=== PATIENT | female | born 1930 | race Caucasian/White ===

== ENCOUNTER 2017-12-22 14:07 | Outpatient (CLI) | payer MEDICARE, OTHER | END 2017-12-22 14:08 | disposition home or self-care (01) | LOC: BICMAMMO 14:07 | PROVIDERS: ATTEND Obstetrics & Gynecology | DX: Z12.31 Encounter for screening mammogram for malignant neoplasm of breast (principal); Z80.3 Family history of malignant neoplasm of breast | CPT/HCPCS: 77063; 77067 ==

== ENCOUNTER 2018-10-06 10:22 | Outpatient (CLI) | payer MEDICARE, OTHER ==
--- NOTE | 2018-10-06 12:53 | CT ---
CT HEAD WITHOUT CONTRAST: HISTORY: Headache. TECHNIQUE: Multiple axial tomograms obtained through the head without IV enhancement. FINDINGS: Mild cortical volume loss. The ventricles have normal size and position. No hemorrhage, mass, infar ct, or other acute process identified. IMPRESSION: No acute finding. POS: [facility]
== END 2018-10-06 10:23 | disposition home or self-care (01) ==
LOC: BICCT 10:22
PROVIDERS: ATTEND Internal Medicine
DX: R51 Headache (principal)
CPT/HCPCS: 70450

== ENCOUNTER 2018-12-29 09:35 | Outpatient (CLI) | payer MEDICARE, OTHER ==
--- NOTE | 2018-12-30 08:48 | MMO ---
Bilateral MAMMO Bilat Screen [facility]. CLINICAL HISTORY: Patient is 88 years old and is seen for screening. The patient has the following family history of breast cancer: 2 sisters and maternal grandmother. The patient has no personal history of cancer. VIEWS: The views performed were: bilateral craniocaudal with tomosynthesis and bilateral mediolateral oblique with tomosynthesis. FILMS COMPARED: The present examination has been compared to prior imaging studies performed at [facility] on 12/22/2017, and at [facility] on 11/06/2014, 11/19/2015 and 12/18/2016. This study has been interpreted with the assistance of computer-aided detection. MAMMOGRAM FINDINGS: There are scattered fibroglandular densities. Benign calcifications are noted bilaterally. There are no suspicious masses, suspicious calcifications, or new areas of architectural distortion. IMPRESSION: THERE IS NO MAMMOGRAPHIC EVIDENCE OF MALIGNANCY. A ROUTINE FOLLOW-UP MAMMOGRAM IN 1 YEAR IS RECOMMENDED. THE RESULTS OF THIS EXAM WERE SENT TO THE PATIENT. ACR BI-RADS Category 2 - Benign finding MAMMOGRAPHY NOTE: 1. A negative mammogram report should not delay a biopsy if a dominant of clinically suspicious mass is present. 2. Approximately 10% to 15% of breast cancers are not detected by mammography. 3. Adenosis and dense breasts may obscure an underlying neoplasm. Reported by: Jessy ACOSTA Electonically Signed: [id number]
== END 2018-12-29 09:36 | disposition home or self-care (01) ==
LOC: BICMAMMO 09:35
PROVIDERS: ATTEND Obstetrics & Gynecology
DX: Z12.31 Encounter for screening mammogram for malignant neoplasm of breast (principal); Z80.3 Family history of malignant neoplasm of breast
CPT/HCPCS: 77063; 77067

== ENCOUNTER 2020-01-01 12:46 | Outpatient (CLI) | payer MEDICARE, OTHER ==
--- NOTE | 2020-01-01 14:13 | MMO ---
Bilateral MAMMO Bilat Screen [facility]. CLINICAL HISTORY: Patient is 89 years old and is seen for screening. The patient has the following family history of breast cancer: 2 sisters and maternal grandmother. The patient has no personal history of cancer. VIEWS: The views performed were: bilateral craniocaudal with tomosynthesis and bilateral mediolateral oblique with tomosynthesis. FILMS COMPARED: The present examination has been compared to prior imaging studies performed at [facility] on 12/22/2017 and 12/29/2018, and at [facility] on 11/19/2015 and 12/18/2016. This study has been interpreted with the assistance of computer-aided detection. MAMMOGRAM FINDINGS: There are scattered fibroglandular densities. Benign calcifications are noted bilaterally. There are no suspicious masses, suspicious calcifications, or new areas of architectural distortion. IMPRESSION: THERE IS NO MAMMOGRAPHIC EVIDENCE OF MALIGNANCY. A ROUTINE FOLLOW-UP MAMMOGRAM IN 1 YEAR IS RECOMMENDED. THE RESULTS OF THIS EXAM WERE SENT TO THE PATIENT. ACR BI-RADS Category 2 - Benign finding MAMMOGRAPHY NOTE: 1. A negative mammogram report should not delay a biopsy if a dominant of clinically suspicious mass is present. 2. Approximately 10% to 15% of breast cancers are not detected by mammography. 3. Adenosis and dense breasts may obscure an underlying neoplasm. Reported by: ISAURA PALACIOS MD Electonically Signed: [id number]
== END 2020-01-01 12:47 | disposition home or self-care (01) ==
LOC: BICMAMMO 12:46
PROVIDERS: ATTEND Obstetrics & Gynecology
DX: Z12.31 Encounter for screening mammogram for malignant neoplasm of breast (principal); Z80.3 Family history of malignant neoplasm of breast
CPT/HCPCS: 77063; 77067

== ENCOUNTER 2020-11-15 13:59 | Observation (INO) | payer MEDICARE, OTHER ==
[2020-11-15 14:52] LABS: #Lymphocytes 2.1 thou/uL (1.20-3.40); #Monocytes 0.5 thou/uL (0.11-0.59); %Eosinophils 0.1 % (0.0-10.0); %Lymphocytes 31.6 % (21.0-51.0); %Monocytes 7.7 % (0.0-10.0); %Neutrophils 60.6 % (42.0-75.0); Hemoglobin 14.2 g/dL (12.0-16.0); Mean Corpuscular HGB CONC 33.5 g/dL (32.0-36.0); Mean Corpuscular Hemoglobin 33.1 pg (27.0-31.0); Mean Platelet Volume 7.6 fL (7.4-10.4); Platelet Count 162 thou/uL (130-400); RBC Distribution Width 12.4 % (11.5-14.5); Red Blood Cell (RBC) Count 4.29 mill/uL (4.20-5.40); White Blood Cell (WBC) Count 6.5 thou/uL (4.8-10.8)
[2020-11-15 15:17] LABS: ALT (SGPT) 14 U/L (8-55); AST (SGOT) 22 U/L (5-34); Albumin 4.1 g/dL (3.4-4.8); Alkaline Phosphatase 53 U/L (40-110); Anion Gap 12 mmol/L (10-20); BUN (Urea Nitrogen) 15 mg/dL (9.8-20.1); Bilirubin, Total 0.5 mg/dL (0.2-1.2); Calc. Creatinine Clearance 0 mL/min (70-130); Calcium 9.6 mg/dL (7.8-10.44); Carbon Dioxide 25 mmol/L (23-31); Chloride 101 mmol/L (98-107); Globulin 3.3 g/dL (2.4-3.5); Glucose 117 mg/dL (83-110); Lipase 24 U/L (8-78); Potassium 4.2 mmol/L (3.5-5.1); Protein, Total 7.4 g/dL (5.8-8.1); Sodium 134 mmol/L (136-145)
[2020-11-15] MEDS ORDERED: Senokot S 8.6-50 MG TAB PO PRN (18:25)
[2020-11-15] MEDS ORDERED: Acetaminophen 325 MG TAB PO PRN (18:25)
[2020-11-15] MEDS ORDERED: Sodium Chloride 0.9% 1,000 ML IV SCH (18:30)
[2020-11-15] MEDS ORDERED: clonazePAM 0.5 MG TAB PO PRN (18:47)
[2020-11-15 22:31] VITALS: BMI 23.3
[2020-11-15] MEDS: Famotidine 20 MG TAB PO SCH (22:36)
[2020-11-15 23:18] LABS: Bilirubin Negative (Negative); Blood, Urine Trace (Negative); Clarity Clear (Clear); Glucose, Urine (Dipstick) Normal (Negative); Ketone, Urine Negative (Negative); Leukocyte 250 Leu/uL (Negative); Nitrite Negative (Negative); Protein, Urine (Dipstick) Negative (Neg-Trace); RBC/HPF 0-3 HPF (0-3); Renal Epithelial 0-3 HPF (None Seen); Specific Gravity, Urine 1.012 (1.002-1.036); Squamous Epithelial 0-3 HPF (0-3); Urobilinogen Normal mg/dL (Less than 2); pH, Urine 6.5 (5.0-9.0)
[2020-11-15 23:24] LABS: Bacteria/HPF 1+ HPF (None Seen)
[2020-11-16 04:22] LABS: #Lymphocytes 1.8 thou/uL (1.20-3.40); #Monocytes 0.6 thou/uL (0.11-0.59); #Neutrophils 5.1 thou/uL (1.40-6.50); %Basophils 0.1 % (0.0-1.0); %Eosinophils 0.1 % (0.0-10.0); %Lymphocytes 24.3 % (21.0-51.0); %Monocytes 8.2 % (0.0-10.0); %Neutrophils 67.4 % (42.0-75.0); Hemoglobin 11.9 g/dL (12.0-16.0); Mean Corpuscular Hemoglobin 30.4 pg (27.0-31.0); Mean Platelet Volume 7.8 fL (7.4-10.4); Platelet Count 152 thou/uL (130-400); RBC Distribution Width 12.3 % (11.5-14.5); Red Blood Cell (RBC) Count 3.92 mill/uL (4.20-5.40); White Blood Cell (WBC) Count 7.6 thou/uL (4.8-10.8)
[2020-11-16 04:47] LABS: Anion Gap 10 mmol/L (10-20); BUN (Urea Nitrogen) 11 mg/dL (9.8-20.1); Calc. Creatinine Clearance 48 mL/min (70-130); Calcium 8.8 mg/dL (7.8-10.44); Carbon Dioxide 26 mmol/L (23-31); Chloride 106 mmol/L (98-107); Glucose 107 mg/dL (83-110); Potassium 4.1 mmol/L (3.5-5.1); Sodium 138 mmol/L (136-145)
[2020-11-16] MEDS: Levothyroxine Sodium 88 MCG TAB PO SCH (05:55)
[2020-11-16] MEDS: Escitalopram Oxalate 10 mg Tablet PO SCH (09:11)
[2020-11-16] MEDS: Famotidine 20 MG TAB PO SCH ×2 (09:11→20:29)
[2020-11-16] MEDS ORDERED: Betamethasone 0.1% Cream 15 GM TUBE TOP SCH (14:45)
[2020-11-16] MEDS: Calcium Carbonate 600 MG + Vit D TAB PO SCH (20:29)
[2020-11-16] MEDS: Polyvinyl Alcohol 1.4%/Povidone 0.6% Opth Drops EA EYE PRN (20:30)
[2020-11-16 20:58] LABS: SARS-CoV-2 PCR by NAA Not Detected (NotDetected)
[2020-11-17] MEDS: Levothyroxine Sodium 88 MCG TAB PO SCH (05:26)
[2020-11-17] MEDS: Calcium Carbonate 600 MG + Vit D TAB PO SCH ×2 (09:00→20:01)
[2020-11-17] MEDS ORDERED: Metamucil PACK PO SCH (09:00)
[2020-11-17] MEDS ORDERED: BIFIDOBACTERIUM INFANTIS 4 MG PO SCH (09:00)
[2020-11-17] MEDS ORDERED: Multivit, Therapeutic 1 TAB PO SCH (09:00)
[2020-11-17] MEDS ORDERED: Estrogens, Conjugated 30 GM TUBE TOP SCH (09:00)
[2020-11-17] MEDS ORDERED: Vit A,C & E/Lutein/Minerals Tablet PO SCH (09:00)
[2020-11-17] MEDS: Famotidine 20 MG TAB PO SCH ×2 (09:00→20:01)
[2020-11-17] MEDS: Escitalopram Oxalate 10 mg Tablet PO SCH (09:01)
[2020-11-17] MEDS: Polyvinyl Alcohol 1.4%/Povidone 0.6% Opth Drops EA EYE PRN ×2 (09:05→15:40)
[2020-11-17 22:19] VITALS: BP 146/67; TEMP 98
== END 2020-11-17 20:50 | disposition short-term general hospital (02) ==
LOC: ERS 13:59 → 2NO 17:57
PROVIDERS: ADMIT Internal Medicine; ATTEND Family Medicine
DX: I08.3 Combined rheumatic disorders of mitral, aortic and tricuspid valves (principal); R55 Syncope and collapse; S06.9X9A Unspecified intracranial injury with loss of consciousness of unspecified duration, initial encounter; D64.9 Anemia, unspecified; E03.9 Hypothyroidism, unspecified; R82.81 Pyuria; R82.71 Bacteriuria; R01.1 Cardiac murmur, unspecified; M43.12 Spondylolisthesis, cervical region; S00.03XA Contusion of scalp, initial encounter; Z79.899 Other long term (current) drug therapy; Z20.822 Contact with and (suspected) exposure to COVID-19; W18.30XA Fall on same level, unspecified, initial encounter
CPT/HCPCS: 70450; 72125; 80048; 80053; 81001; 83690; 84443; 84484; 85025 ×2; 87086; 93005; 93306; 93880; 97139 ×4; 99285; U0003; U0005; 36415; G0378; J7050

== ENCOUNTER 2021-01-02 10:07 | Outpatient (CLI) | payer MEDICARE, OTHER | END 2021-01-02 10:08 | disposition home or self-care (01) | LOC: BICMAMMO 10:07 | PROVIDERS: ATTEND Obstetrics & Gynecology | DX: Z12.31 Encounter for screening mammogram for malignant neoplasm of breast (principal); Z80.3 Family history of malignant neoplasm of breast | CPT/HCPCS: 77063; 77067 ==